=== PATIENT | female | born 1970 | race Caucasian/White ===

== ENCOUNTER 2019-05-26 09:56 | Emergency (ER) | payer BC ==
[2019-05-26 10:49] VITALS: BP 119/70
--- NOTE | 2019-05-26 11:30 | UC ---
Back Pain HPI - HPI Summary HPI Summary: was doping home renovations 2 days ago and had L lower back pain by end of day, felt better yesterday but this am she has L lower back pain that radiates to L hip and pelvis, worse with certain movement, better after up and walking for a few minutes, no incontinence (but was worried she had UTI because of back pain) , denies vaginal symps. Has tried ibuprofen 600mg that gave her pain relief for few hours, describes "spasm" type pain - History of Current Complaint Chief Complaint: [facility]CGU Stated Complaint: BURNING URINATION Time Seen by Provider: 05/26/19 10:51 Hx Obtained From: Patient Hx Last Menstrual Period: 05/13/19 ?: No Onset/Duration: Sudden Onset Timing: Constant Severity Initially: Moderate Severity Currently: Moderate Pain Intensity: 5 Back Pain: Is Discrete @ - L lower SI and hip area Character: Aching, Spasmodic, Stiffness Aggravating Factor(s): Movement Alleviating Factor(s): Position, OTC Meds - ibuprofen Associated Signs And Symptoms: Positive: Negative. Negative: Fever, Weakness, Numbness, Tingling, Bladder Incontinence, Bowel Incontinence - Allergies/Home Medications Allergies/Adverse Reactions: Allergies Allergy/AdvReac Type Severity Reaction Status Date / Time No Known Allergies Allergy Verified 05/26/19 10:39 Home Medications: Home Medications Atorvastatin* [Lipitor 20 MG*] 20 mg PO DAILY 05/26/19 [History Confirmed ] Ibuprofen TAB* [Motrin TAB* 600 MG] 600 mg PO Q6H PRN 05/26/19 [History Confirmed 05/26/19] Norethindrone 0.35 mg PO DAILY 05/26/19 [History Confirmed 05/26/19] PMH/Surg Hx/FS Hx/Imm Hx Previously Healthy: Yes Endocrine History: Dyslipidemia - Surgical History Surgical History: Yes Surgery Procedure, Year, and Place: rhinoplasty. vocal cord surgery. cervical polyp removal - Family History Known Family History: Positive: Non-Contributory - Social History Occupation: Employed Full-time - senior billing consultant Lives: With Family Alcohol Use: Occasionally Substance Use Type: None Smoking Status (MU): Former Smoker When Did the Patient Quit Smoking/Using Tobacco: 2004 Review of Systems All Other Systems Reviewed And Are Negative: Yes Constitutional: Positive: Negative Skin: Positive: Negative. Negative: Rash Respiratory: Positive: Negative Cardiovascular: Positive: Negative Gastrointestinal: Positive: Negative. Negative: Abdominal Pain Genitourinary: Positive: Negative Musculoskeletal: Positive: Other: - low back and hip pain Neurological: Positive: Negative Psychological: Positive: Negative Is Patient Immunocompromised?: No Physical Exam Triage Information Reviewed: Yes Appearance: Well-Appearing, No Pain Distress, Well-Nourished Vital Signs: Initial Vital Signs Temp 97.7 F 05/26/19 10:42 Pulse 54 05/26/19 10:42 Resp 18 05/26/19 10:42 BP 119/70 05/26/19 10:42 Pulse Ox 100 05/26/19 10:42 Vital Signs Reviewed: Yes Respiratory Exam: Normal Respiratory: Positive: Lungs clear Cardiovascular Exam: Normal Cardiovascular: Positive: RRR Abdominal Exam: Normal Abdomen Description: Positive: Nontender Musculoskeletal: Positive: Strength Intact, ROM Intact, Other: - point tenderness L SI joint and trochanter bursae area hip, c/o pain when rising from seated position, less pain when standing Neurological Exam: Normal Psychological Exam: Normal Skin Exam: Normal Skin: Negative: Rashes Back Pain Course/Dx - Differential Dx/Diagnosis Differential Diagnosis/HQI/PQRI: Cauda Equina Syndrome, Herniated Disc, Strain, Sprain, Other - bursitis hip Provider Diagnosis: Lumbago Discharge ED - Sign-Out/Discharge Documenting (check all that apply): Patient Departure All imaging exams completed and their final reports reviewed: No Studies - Discharge Plan Condition: Good Disposition: HOME Prescriptions: Cyclobenzaprine TAB* [Flexeril 10 MG TAB*] 10 mg PO TID PRN #15 tab PRN Reason: Spasms Patient Education Materials: Low Back Strain (ED) Referrals: No Primary Care Phys,NOPCP [Primary Care Provider] - Additional Instructions: Rest, apply warm packs to back use ibuprofen 600-800mg every 6 hours for pain (take with food) use cyclobenzaprine muscle relaxer as prescribed - this will make you tired return if symptoms worsen at anytime - Billing Disposition and Condition Condition: GOOD Disposition: Home
== END 2019-05-26 11:44 | disposition home or self-care (01) ==
LOC: UCEAST 09:56
DX: M54.5 Low back pain (principal); E78.5 Hyperlipidemia, unspecified; M25.552 Pain in left hip; Z79.899 Other long term (current) drug therapy; Z87.891 Personal history of nicotine dependence
CPT/HCPCS: 81003; 99202; G0463